=== PATIENT | male | born 1945 | race Caucasian/White ===

== ENCOUNTER 2018-11-24 22:16 | Emergency (ER) | payer OTHER ==
[2018-11-25] MEDS: IBUPROFEN 600 MG TAB PO (01:54)
[2018-11-25] MEDS: LIDOCAINE 1% (MDV) 20 ML INJ SC (01:54)
== END 2018-11-25 04:14 | disposition home or self-care (01) ==
LOC: FTE 22:16
DX: L02.212 Cutaneous abscess of back [any part, except buttock and flank] (principal); I10 Essential (primary) hypertension
CPT/HCPCS: 10060; 99282-25